=== PATIENT | female | born 1965 | race Caucasian/White ===

== ENCOUNTER → 2016-12-17 | Outpatient (CLI) | payer OTHER ==
[~2016-12-17] MED LIST: ALLEGRA ALLERG180 MG PO; ALLEGRA180 MG PO; AMBIEN5 MG PO; ATARAX,VISTARIL25 MG PO; AUGMENTIN875 MG PO; BUSPAR10 MG PO; CALCIUM/MAGN1 TABLE2 PO; CARDIZEM CD,CA240 MG PO; CENTRUM SILVER1 EAC4 PO; CLIMARA0.05 MG TP; CO Q-1050 MG PO; COLACE100 MG PO; CYMBALTA60 MG PO; DIFLUCAN150 MG PO; FISH OIL 1,2001 EAC4 PO; FLONASE16 G1 BOTH NARES; FLONASE16 GM NS; GEODON40 MG PO; GLUCOPHAGE500 MG PO; IRON325 MG PO; LASIX10 MG PO; LISINOPRIL20 MG PO; LOPRESSOR100 M1 PO; LOPRESSOR50 MG PO; LYRICA150 MG PO; LYRICA300 MG PO; MOBIC15 MG PO; NEXIUM40 MG PO; PERCOCET 5/31 TABLET PO; PRAVACHOL10 MG PO; PRILOSEC20 MG PO; PROAIR HFA8.5 GM IH; PROBIOTIC1 EAC1 PO; PROGESTERONE100 MG PO; PROTONIX40 MG PO; PULMICORT90 MICROGR IH; RESTASIS 01 DROP/0.4 BOTH EYES; ROPINIROLE HCL2 M1 PO; ROZEREM8 MG PO; SAVELLA50 MG PO; SLEEP AID50 MG PO; TIZANIDINE HCL4 MG PO; TOPAMAX50 MG PO; TOPROL XL100 MG PO; VALTREX1000 MG PO; VITAMIN B-12500 MC3 PO; XYZAL5 MG PO; ZANAFLEX4 M1 PO; ZINC30 MG PO; ZOVIRAX400 MG PO
== END | disposition home or self-care (01) ==
LOC: RAD 13:48
DX: R22.2 Localized swelling, mass and lump, trunk (principal)
CPT/HCPCS: 76604

== ENCOUNTER → 2017-01-09 | Outpatient (CLI) | payer MEDICARE, OTHER | END | disposition home or self-care (01) | LOC: CDC 10:00 | DX: Z01.810 Encounter for preprocedural cardiovascular examination (principal); K21.9 Gastro-esophageal reflux disease without esophagitis; K59.09 Other constipation; D51.9 Vitamin B12 deficiency anemia, unspecified; M25.562 Pain in left knee; J30.89 Other allergic rhinitis; M25.561 Pain in right knee; E11.9 Type 2 diabetes mellitus without complications; E78.2 Mixed hyperlipidemia; M79.7 Fibromyalgia; R42 Dizziness and giddiness; R12 Heartburn; L20.89 Other atopic dermatitis; R91.1 Solitary pulmonary nodule; R73.01 Impaired fasting glucose; F43.22 Adjustment disorder with anxiety; R10.9 Unspecified abdominal pain; E66.9 Obesity, unspecified; J01.80 Other acute sinusitis; R22.2 Localized swelling, mass and lump, trunk; I10 Essential (primary) hypertension | CPT/HCPCS: 93000 ==

== ENCOUNTER → 2017-10-03 | Outpatient (CLI) | payer OTHER ==
[~2017-10-03] VITALS: Ht 170.2 cm; Wt 120.2 kg
[~2017-10-03] MED LIST changes: +ALCORTIN A GEL48 GM TP; +HAIR SKIN NAIL1 EACH PO; +HYDROCORTISONE30 G3 TP; +IRON325 M1 PO; +SUCRALFATE1 GM PO; +TYLENOL ARTHRI650 MG PO; +TYLENOL EXTRA500 MG PO
[2017-10-03 09:16] LABS: HEMATOCRIT 33.8 % (36.0-46.0); MCV 85.1 FL (83-99)
== END | disposition home or self-care (01) ==
LOC: AMB 08:47
PROVIDERS: Anesthesiology
DX: D64.9 Anemia, unspecified (principal); K92.0 Hematemesis; K44.9 Diaphragmatic hernia without obstruction or gangrene; K64.8 Other hemorrhoids; Z86.010 Personal history of colon polyps; Z86.19 Personal history of other infectious and parasitic diseases; E11.9 Type 2 diabetes mellitus without complications; I10 Essential (primary) hypertension; E78.5 Hyperlipidemia, unspecified; Z79.899 Other long term (current) drug therapy; Z82.49 Family history of ischemic heart disease and other diseases of the circulatory system; Z80.1 Family history of malignant neoplasm of trachea, bronchus and lung; Z80.41 Family history of malignant neoplasm of ovary; Z82.5 Family history of asthma and other chronic lower respiratory diseases; Z83.3 Family history of diabetes mellitus; Z88.0 Allergy status to penicillin; Z88.2 Allergy status to sulfonamides; Z88.8 Allergy status to other drugs, medicaments and biological substances
CPT/HCPCS: 85014; 85018; J2250

== ENCOUNTER → 2017-11-26 | Outpatient (CLI) | payer OTHER | END | disposition home or self-care (01) | LOC: EKG 10:10 | DX: Z01.810 Encounter for preprocedural cardiovascular examination (principal); Z01.818 Encounter for other preprocedural examination; D17.1 Benign lipomatous neoplasm of skin and subcutaneous tissue of trunk; R91.8 Other nonspecific abnormal finding of lung field | CPT/HCPCS: 71046; 93005 ==

== ENCOUNTER 2017-12-11 08:18 | Day surgery (SDC) | payer OTHER ==
[~2017-12-11] VITALS: Ht 170.2 cm; Wt 122.4 kg
[~2017-12-11 08:18] MED LIST changes: +BRISDELLE7.5 MG PO; +CARDIZEM60 MG PO; +ZESTRIL20 MG PO
[2017-12-11 09:26] VITALS: BP 116/76
[2017-12-11] MEDS ORDERED: PERCOCET 5/31 TABLET PO (14:24)
[2017-12-11 14:30] VITALS: BP 126/78
[2017-12-11 15:45] VITALS: BP 113/78
== END 2017-12-11 16:00 | disposition home or self-care (01) ==
LOC: SDC 08:18
DX: D17.1 Benign lipomatous neoplasm of skin and subcutaneous tissue of trunk (principal); D22.62 Melanocytic nevi of left upper limb, including shoulder; I10 Essential (primary) hypertension; K22.4 Dyskinesia of esophagus; E78.5 Hyperlipidemia, unspecified; E11.9 Type 2 diabetes mellitus without complications; J45.909 Unspecified asthma, uncomplicated; K21.9 Gastro-esophageal reflux disease without esophagitis; D50.9 Iron deficiency anemia, unspecified; Z88.0 Allergy status to penicillin; Z88.2 Allergy status to sulfonamides
CPT/HCPCS: 88304; 88305; J0330; J0690; J1100; J1200; J2405; J3010; Q0175

== ENCOUNTER 2018-01-02 05:35 | Day surgery (SDC) | payer OTHER ==
[~2018-01-02] VITALS: Ht 170.2 cm; Wt 122.4 kg
[~2018-01-02 05:35] MED LIST changes: +ACID CONTROL150 MG PO
[2018-01-02 06:00] VITALS: BP 140/82
[2018-01-02 06:36] LABS: BASOPHIL (%) 0.5 % (0-1); EOSINOPHIL (%) 1.6 % (0-5); EOSINOPHIL COUNT 0.1 K/uL (0-0.3); HEMATOCRIT 41.9 % (36.0-46.0); HEMOGLOBIN 13.3 G/DL (11.9-15.5); IMMATURE GRANULOCYTE (%) 0.2 % (0.0-0.7); LYMPHOCYTE (%) 41.2 % (15-42); LYMPHOCYTE COUNT 2.6 K/uL (1.0-2.8); MCH 26.5 PG (29.0-34.0); MCHC 31.7 G/DL (30.0-36.0); MCV 83.5 FL (83-99); MONOCYTE (%) 8.5 % (3-12); MONOCYTE COUNT 0.5 K/uL (0-0.8); PLATELET COUNT 380 K/uL (156-360); RBC DIS.WIDTH-CV 17.2 % (11.8-14.6); RED BLOOD COUNT 5.02 M/uL (3.80-5.20); WHITE BLOOD COUNT 6.2 K/uL (4.1-10.2)
[2018-01-02 06:45] LABS: CHLORIDE 105 MEQ/L (99-109); CREATININE 0.8 MG/DL (0.6-1.3); GFR ESTIMATE (CALCULATED) > 59 mL/min/; GLUCOSE 101 mg/dL (70-99); POTASSIUM 4.1 MEQ/L (3.7-5.4); SODIUM 140 MEQ/L (136-147); UREA NITROGEN (BUN) 17 mg/dL (9-23)
[2018-01-02 07:32] LABS: QUANTITATIVE HCG < 4.0 MIU/ML
[2018-01-02] MEDS ORDERED: ENDOCET 5-3251 EACH PO (12:37)
[2018-01-02] MEDS ORDERED: MOTRIN600 MG PO (12:37)
[2018-01-02 13:55] VITALS: BP 132/78
[2018-01-02 15:36] LABS: BASOPHIL (%) 0.2 % (0-1); EOSINOPHIL (%) 0 % (0-5); HEMATOCRIT 40.7 % (36.0-46.0); HEMOGLOBIN 12.9 G/DL (11.9-15.5); IMMATURE GRANULOCYTE (%) 0.3 % (0.0-0.7); LYMPHOCYTE (%) 5.4 % (15-42); LYMPHOCYTE COUNT 0.7 K/uL (1.0-2.8); MCH 26.5 PG (29.0-34.0); MCHC 31.7 G/DL (30.0-36.0); MCV 83.7 FL (83-99); MONOCYTE (%) 2.1 % (3-12); MONOCYTE COUNT 0.3 K/uL (0-0.8); NEUTROPHIL COUNT 12.1 K/uL (1.8-6.4); PLATELET COUNT 324 K/uL (156-360); RED BLOOD COUNT 4.86 M/uL (3.80-5.20); WHITE BLOOD COUNT 13.2 K/uL (4.1-10.2)
[2018-01-02 16:08] VITALS: BP 135/69
[2018-01-02 19:45] VITALS: BP 134/73
[2018-01-02 23:15] VITALS: BP 111/64
[2018-01-03 04:00] VITALS: BP 116/64
[2018-01-03 06:52] VITALS: BP 128/75
[2018-01-03 09:04] VITALS: BP 118/59
[2018-01-03] MEDS ORDERED: OXYCODONE HCL5 MG PO (13:03)
[2018-01-03] MEDS ORDERED: HYDROXYZINE PAM25 MG PO (13:03)
== END 2018-01-03 14:45 | disposition home or self-care (01) ==
LOC: SDC 05:35 → 2SOUTH 12:26 → ENRESERV 12:33 → SDC 13:29 → 2EASTP 13:52 → SDC 14:07 → 2EASTP 01-03 14:45
PROVIDERS: Obstetrics & Gynecology
DX: N80.0 Endometriosis of uterus (principal); N93.9 Abnormal uterine and vaginal bleeding, unspecified; I10 Essential (primary) hypertension; E11.9 Type 2 diabetes mellitus without complications; K22.4 Dyskinesia of esophagus; M79.7 Fibromyalgia; E78.5 Hyperlipidemia, unspecified; D50.9 Iron deficiency anemia, unspecified; Z80.41 Family history of malignant neoplasm of ovary; Z88.0 Allergy status to penicillin; Z88.2 Allergy status to sulfonamides
CPT/HCPCS: 80048; 82948; 84702; 85025; 85025 91; 86850; 86900; 86901; 88307; G0378; J0131; J0330; J0690; J1100; J1170; J1200; J1815; J1885; J2270; J2405; J2710; J7120; Q0177; S0020

== ENCOUNTER 2018-03-05 12:24 | Emergency (ER) | payer OTHER ==
[~2018-03-05] VITALS: Ht 170.2 cm; Wt 123.3 kg
[~2018-03-05 12:24] MED LIST changes: +ENDOCET 5-3251 EACH PO; +HYDROXYZINE PAM25 MG PO; +MOTRIN600 MG PO; +OXYCODONE HCL5 MG PO
[2018-03-05 13:33] LABS: APPEARANCE TURBID ((CLEAR)); BILIRUBIN NEGATIVE; BLOOD LARGE; COLOR AMBER ((YELLOW)); GLUCOSE (STRIP) NEGATIVE; KETONES NEGATIVE; LEUKOCYTES LARGE; NITRITE NEGATIVE; PROTEIN (STRIP) 100; SPECIFIC GRAVITY 1.014 (1.000-1.030); UROBILINOGEN 0.2 MG/DL (0.2-1.0)
[2018-03-05 14:17] LABS: HEMATOCRIT 41.8 % (36.0-46.0); HEMOGLOBIN 13.8 G/DL (11.9-15.5); MCH 29.1 PG (29.0-34.0); PLATELET COUNT 375 K/uL (156-360); RBC DIS.WIDTH-CV 13.1 % (11.8-14.6); RBC DIS.WIDTH-SD 42.3 % (39-53); RED BLOOD COUNT 4.75 M/uL (3.80-5.20)
[2018-03-05 14:26] LABS: CHLORIDE 104 mEq/L (99-109); POTASSIUM 4.5 mEq/L (3.7-5.4); SODIUM 139 mEq/L (136-147)
[2018-03-05 14:27] LABS: GLUCOSE 103 mg/dL (70-99)
[2018-03-05 14:31] LABS: RED BLOOD CELLS TNTC /HPF (0-5); UCUL ADDED? YES; WHITE BLOOD CELLS TNTC /HPF (0-5)
[2018-03-05 14:31] LABS: CREATININE 0.9 mg/dL (0.6-1.3); GFR ESTIMATE (CALCULATED) > 59 mL/min/
[2018-03-05 14:32] LABS: UREA NITROGEN (BUN) 11 mg/dL (9-23)
[2018-03-05] MEDS ORDERED: MOTRIN600 MG PO ×2 (20:27→20:52)
[2018-03-05] MEDS ORDERED: ALEVE220 M2 PO (20:31)
[2018-03-05] MEDS ORDERED: TYLENOL ARTHRI650 MG PO (20:32)
[2018-03-05] MEDS ORDERED: MOBIC15 MG PO (20:32)
[2018-03-05] MEDS ORDERED: ESTRADIOL0.5 MG PO (20:33)
[2018-03-05] MEDS ORDERED: PYRIDIUM200 MG PO (20:52)
[2018-03-05] MEDS ORDERED: CIPRO250 MG PO (20:52)
[2018-03-05 21:14] VITALS: BP 154/74
== END 2018-03-05 21:14 | disposition home or self-care (01) ==
LOC: EME 12:24
DX: N30.91 Cystitis, unspecified with hematuria (principal); Z98.890 Other specified postprocedural states; Z90.710 Acquired absence of both cervix and uterus; R10.32 Left lower quadrant pain; K44.9 Diaphragmatic hernia without obstruction or gangrene; K57.30 Diverticulosis of large intestine without perforation or abscess without bleeding; I10 Essential (primary) hypertension; Z79.890 Hormone replacement therapy
CPT/HCPCS: 74177; 80048; 81003; 85027; 87086; 99281; 99285; J7040

== ENCOUNTER 2018-05-29 13:03 | Emergency (ER) | payer OTHER ==
[~2018-05-29] VITALS: Ht 170.2 cm; Wt 120.5 kg
[~2018-05-29 13:03] MED LIST changes: +ALEVE220 M2 PO; +CIPRO250 MG PO; +ESTRADIOL0.5 MG PO; +PYRIDIUM200 MG PO
[2018-05-29 14:11] LABS: HEMATOCRIT 41.8 % (36.0-46.0); HEMOGLOBIN 13.5 G/DL (11.9-15.5); MCH 27.4 PG (29.0-34.0); MCHC 32.3 G/DL (30.0-36.0); MCV 84.8 FL (83-99); PLATELET COUNT 374 K/uL (156-360); RBC DIS.WIDTH-CV 13.5 % (11.8-14.6); RBC DIS.WIDTH-SD 41.6 % (39-53); RED BLOOD COUNT 4.93 M/uL (3.80-5.20); WHITE BLOOD COUNT 6.9 K/uL (4.1-10.2)
[2018-05-29 14:21] LABS: ALBUMIN 4.4 g/dL (3.2-4.8); CHLORIDE 103 mEq/L (99-109); POTASSIUM 4.8 mEq/L (3.7-5.4); SODIUM 138 mEq/L (136-147)
[2018-05-29 14:23] LABS: GLUCOSE 101 mg/dL (70-99)
[2018-05-29 14:24] LABS: TOTAL PROTEIN 7.9 g/dL (6.4-8.3)
[2018-05-29 14:25] LABS: TOTAL BILIRUBIN 0.3 mg/dL (0.0-1.0)
[2018-05-29 14:27] LABS: ALKALINE PHOSPHATASE 100 IU/L (3-129); GFR ESTIMATE (CALCULATED) > 59 mL/min/
[2018-05-29 14:28] LABS: UREA NITROGEN (BUN) 13 mg/dL (9-23)
[2018-05-29 14:29] LABS: AST (GOT) 19 IU/L (2-34)
[2018-05-29 14:30] LABS: ALT (GPT) 22 IU/L (3-49)
[2018-05-29 14:35] LABS: QUANTITATIVE HCG < 4.0 MIU/ML
[2018-05-29 16:12] LABS: APPEARANCE CLOUDY ((CLEAR)); BILIRUBIN NEGATIVE; BLOOD SMALL; COLOR YELLOW ((YELLOW)); GLUCOSE (STRIP) NEGATIVE; KETONES NEGATIVE; LEUKOCYTES LARGE; NITRITE NEGATIVE; PROTEIN (STRIP) NEGATIVE; UROBILINOGEN 0.2 MG/DL (0.2-1.0)
[2018-05-29 16:43] LABS: EPITHELIAL CELLS 2+ /HPF; MUCUS NONE SEEN /LPF; RED BLOOD CELLS 0-5 /HPF (0-5); WHITE BLOOD CELLS TNTC /HPF (0-5)
[2018-05-29 16:44] LABS: BACTERIA 1+ /HPF; UCUL ADDED? YES
[2018-05-29 16:45] LABS: HYALINE CASTS RARE /LPF
[2018-05-29] MEDS ORDERED: LEVAQUIN750 MG PO (16:48)
[2018-05-29 17:16] VITALS: BP 162/99
== END 2018-05-29 18:05 | disposition home or self-care (01) ==
LOC: EME 13:03
DX: N39.0 Urinary tract infection, site not specified (principal); R19.7 Diarrhea, unspecified; Z90.710 Acquired absence of both cervix and uterus; I10 Essential (primary) hypertension; Z79.890 Hormone replacement therapy; Z88.0 Allergy status to penicillin; Z88.2 Allergy status to sulfonamides; Z87.440 Personal history of urinary (tract) infections
CPT/HCPCS: 80053; 81003; 84702; 85027; 87077; 87086; 87186; 99281; 99284